=== PATIENT | male | born 1945 | race American Indian/Alaskan Native ===

== ENCOUNTER 2017-09-11 12:18 | Emergency (ER) | payer MEDICARE, MEDICAID ==
[2017-09-11 12:19] VITALS: BMI 20.5
[2017-09-11 12:28] VITALS: TEMP 98; O2SAT 98
--- NOTE | 2017-09-11 12:53 | ED PDOC ---
Lower Extremity Pain/Injury Time Seen by Provider: 09/11/17 12:46 Chief Complaint (Nursing): Lower Extremity Problem/Injury History Per: Patient Current Symptoms Are (Timing): Still Present Severity: Mild Additional Complaint(s): Right knee pain since 2008. Worse over past 2 months. No trauma. No fever. Past Medical History Vital Signs: Last Vital Signs Temp 98 F 09/11/17 12:21 Pulse 94 H 09/11/17 12:21 Resp 16 09/11/17 12:21 BP 224/164 H 09/11/17 12:21 Pulse Ox 98 09/11/17 12:21 - Medical History PMH: HTN Denies: Chronic Kidney Disease - Family History Family History: States: Unknown Family Hx - Home Medications Home Medications: Ambulatory Orders Medication Instructions Recorded Naproxen [Naprosyn] 500 mg PO BID PRN #14 tablet 08/15/17 Clotrimazole 1% Cream [Lotrimin 1% 1 applic TOP BID #1 tube 09/11/17 CREAM] - Allergies Allergies/Adverse Reactions: Allergies Allergy/AdvReac Type Severity Reaction Status Date / Time No Known Allergies Allergy Verified 09/11/17 12:21 Review of Systems Constitutional: Negative for: Fever Musculoskeletal: Positive for: Other (knee pain) Neurological: Negative for: Weakness, Numbness Physical Exam - Physical Exam Appears: Positive for: Non-toxic, No Acute Distress Skin: Positive for: Normal Color, Warm, DRY Cardiovascular/Chest: Positive for: Regular Rate, Rhythm Respiratory: Positive for: CNT, Normal Breath Sounds Extremity: Positive for: Normal ROM, Tenderness (Infrapatellar area. No swerlling or effusion). Negative for: Deformity, Swelling - ECG O2 Sat by Pulse Oximetry: 98 Medical Decision Making Medical Decision Making: Pt given Catapres 0.2 mg with no significant change in BP. Does not want any other tx for his hypertension. Awake alert oriented x 3 aware of risks of not treating elevated BP including stroke, intracerebral bleed and . Disposition - Clinical Impression Clinical Impression: Knee pain, Hypertension - Patient ED Disposition Is Patient to be Admitted: No Counseled Patient/Family Regarding: Studies Performed, Diagnosis, Need For Followup, Rx Given - Disposition Referrals: [facility] [Outside] Disposition: Routine/Home Disposition Time: 14:36 Condition: FAIR Prescriptions: Clotrimazole 1% Cream [Lotrimin 1% CREAM] 1 applic TOP BID #1 tube Instructions: Hypertension (ED), Knee Pain (ED) Forms: [email or web address] ([place])
[2017-09-11 14:21] VITALS: BP 168/80; PULSE 88; RESP 18
--- NOTE | 2017-09-11 16:07 | RAD ---
PROCEDURE: Right Knee Radiographs. HISTORY: pain COMPARISON: None. FINDINGS: BONES: Normal. No fracture. JOINTS: Moderate to mildly severe osteoarthritic changes are noted. JOINT EFFUSION: No radiographic evidence of significant joint effusion. OTHER FINDINGS: None. 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
== END 2017-09-11 15:01 | disposition home or self-care (01) ==
LOC: H.ER 12:18
DX: M25.561 Pain in right knee (principal); I10 Essential (primary) hypertension

== ENCOUNTER 2018-05-14 09:34 | Emergency (ER) | payer MEDICARE, MEDICAID ==
[2018-05-14 09:43] VITALS: BMI 26.9
[2018-05-14 09:50] VITALS: RESP 17; TEMP 98.4; O2SAT 100
--- NOTE | 2018-05-14 10:40 | ED PDOC ---
Lower Extremity Pain/Injury Time Seen by Provider: 05/14/18 09:58 Chief Complaint (Nursing): Lower Extremity Problem/Injury Chief Complaint (Provider): R leg pain History Per: Patient History/Exam Limitations: no limitations Current Symptoms Are (Timing): Still Present Severity: Moderate Additional History Per: Prior Records Additional Complaint(s): 73yo male c/o right leg pain mostly knee and below knee associated w occasional falls, also requesting medication for high blood pressure. Denies chest pain, SOB, weakness, change vision or headache. Past Medical History Reviewed: Historical Data, Nursing Documentation, Vital Signs Vital Signs: Last Vital Signs Temp 98.4 F 05/14/18 09:48 Pulse 80 05/14/18 09:48 Resp 17 05/14/18 09:48 BP 225/113 H 05/14/18 09:48 Pulse Ox 100 05/14/18 09:48 - Medical History PMH: HTN Denies: Chronic Kidney Disease Other PMH: meningitis in early 1970s - Surgical History Surgical History: No Surg Hx - Family History Family History: States: Unknown Family Hx - Social History Current smoker - smoking cessation education provided: No - Home Medications Home Medications: Ambulatory Orders Medication Instructions Recorded Naproxen [Naprosyn] 500 mg PO BID PRN #14 tablet 08/15/17 Clotrimazole 1% Cream [Lotrimin 1% 1 applic TOP BID #1 tube 09/11/17 CREAM] hydroCHLOROthiazide [Hydrodiuril] 25 mg PO DAILY #14 tab 05/14/18 traMADol [Ultram] 50 mg PO TID PRN #12 tab 05/14/18 - Allergies Allergies/Adverse Reactions: Allergies Allergy/AdvReac Type Severity Reaction Status Date / Time No Known Allergies Allergy Verified 09/11/17 12:21 Review of Systems ROS Statement: Except As Marked, All Systems Reviewed And Found Negative Constitutional: Negative for: Fever ENT: Negative for: Ear Pain Cardiovascular: Negative for: Chest Pain, Palpitations Respiratory: Negative for: Cough, Shortness of Breath Gastrointestinal: Negative for: Nausea, Abdominal Pain Genitourinary Male: Negative for: Dysuria Musculoskeletal: Positive for: Leg Pain. Negative for: Neck Pain Skin: Negative for: Rash, Lesions Neurological: Negative for: Weakness, Numbness, Headache, Dizziness Psych: Negative for: Depression Physical Exam - Reviewed Nursing Documentation Reviewed: Yes Vital Signs Reviewed: Yes - Physical Exam Appears: Positive for: Well, Non-toxic, No Acute Distress Head Exam: Positive for: ATRAUMATIC, NORMAL INSPECTION, NORMOCEPHALIC Skin: Positive for: Normal Color, Warm, DRY Eye Exam: Positive for: EOMI, Normal appearance, PERRL ENT: Positive for: Normal ENT Inspection Neck: Positive for: Normal, Painless ROM Cardiovascular/Chest: Positive for: Regular Rate, Rhythm Respiratory: Positive for: CNT, Normal Breath Sounds Pulses-Radial (L): 3+/4+ Pulses-Radial (R): 3+/4+ Gastrointestinal/Abdominal: Positive for: Soft. Negative for: Tenderness, Guarding Extremity: Positive for: Normal ROM, Tenderness (R knee), Other (RLE with marker "crosses" on skin, patient states he asked god to help him with the pain). Negative for: Pedal Edema, Calf Tenderness, Deformity Neurologic/Psych: Positive for: Alert, Oriented. Negative for: Motor/Sensory Deficits - ECG O2 Sat by Pulse Oximetry: 100 Medical Decision Making Medical Decision Making: BP elevated but patient just requesting medication does not want any further workup for such. Explained risks of malignant hypertension including stroke, I CH, NH, kidney failure, blindness or . He refused repeat XRay of knee, prior xray reviewed from 2017 +arthritis. tylenol ordered for pain MOUNA wrap applied, refer [facility] and orthopedics Asymptomatic hypertension in ED, requires step coy lowering over next 2 weeks. Mandatory followup PMD. Disposition - Clinical Impression Clinical Impression: Knee pain, Uncontrolled hypertension - Disposition Referrals: Max Mon MD [Staff Provider] - Disposition: Routine/Home Disposition Time: 11:05 Condition: FAIR Additional Instructions: Followup with PMD for continued blood pressure monitoring and futher testing. Followup with orthopedist for further testing and treatment of chronic R knee pain. Wear MOUNA wrap to knee as directed. Take medication for pain as discussed only as needed. Prescriptions: hydroCHLOROthiazide [Hydrodiuril] 25 mg PO DAILY #14 tab traMADol [Ultram] 50 mg PO TID PRN #12 tab PRN Reason: Pain, Moderate (4-7) Instructions: High Blood Pressure in Adults, Knee Pain Forms: [employer] (L[place]uanian)
[2018-05-14 11:04] VITALS: BP 201/101
[2018-05-14 11:26] VITALS: PULSE 82
== END 2018-05-14 11:17 | disposition home or self-care (01) ==
LOC: H.ER 09:34
DX: M25.561 Pain in right knee (principal); I10 Essential (primary) hypertension; Z76.0 Encounter for issue of repeat prescription